=== PATIENT | female | born 1985 | race Caucasian/White ===

== ENCOUNTER → 2016-11-11 | Outpatient (REF) | payer OTHER ==
[~2016-11-11] MED LIST: *BLW9; ALBUTEROL INHALATION; CLARITIN10 PO; LEVOTH PO; LEVOXYL PO; LEVOXYL50 PO; NASONEX NASAL; ZITHROZPAK PO; ZYRTEC10 PO; ZYRTECD12 PO
[2016-11-11 19:35] LABS: CALCIUM OXALATE CRYSTALS LARGE
== END ==
LOC: M LAB REF 16:54
PROVIDERS: ATTEND Physician Assistant Medical
DX: N39.0 Urinary tract infection, site not specified (principal)

== ENCOUNTER 2017-01-02 20:57 | Emergency (ER) | payer OTHER ==
[~2017-01-02] VITALS: Ht 162.6 cm; Wt 85.3 kg
[2017-01-02] MEDS ORDERED: OMEP40CA2 PO (21:19)
[2017-01-02] MEDS ORDERED: DOXE75CA2 PO (21:19)
[2017-01-02] MEDS ORDERED: VENLAFAXINE PO (21:19)
[2017-01-02] MEDS ORDERED: ALPR1TAB3 PO (21:19)
[2017-01-02] MEDS ORDERED: [UNRECOGNIZED DRUG - REMARK] PO (21:19)
[2017-01-02] MEDS ORDERED: XANA2TAB2 PO (21:19)
[2017-01-02] MEDS ORDERED: MULT1TAB10 PO (21:19)
[2017-01-02] MEDS ORDERED: LEVO125T3 PO (21:19)
[2017-01-02] MEDS ORDERED: FLON27.5 (21:19)
[2017-01-02] MEDS ORDERED: XYZA5TAB2 PO (21:19)
[2017-01-02] MEDS ORDERED: REGL10TA6 PO (22:59)
[2017-01-02] MEDS ORDERED: BACT800T5 PO (22:59)
[2017-01-02] MEDS ORDERED: BACTRIM 160MG/800MG DS TAB PO ONE (23:00)
[2017-01-02] MEDS ORDERED: METOCLOPRAMIDE 10 MG TAB PO ONE (23:00)
[2017-01-02 23:13] VITALS: BP 124/75
== END 2017-01-02 23:14 | disposition home or self-care (01) ==
LOC: M ED 21:26
DX: L02.416 Cutaneous abscess of left lower limb (principal); R11.0 Nausea

== ENCOUNTER 2017-01-14 13:30 | Emergency (ER) | payer OTHER, SELFPAY ==
[~2017-01-14] VITALS: Ht 162.6 cm; Wt 81.6 kg
[~2017-01-14 13:30] MED LIST changes: +ALPR1TAB3 PO; +BACT800T5 PO; +DOXE75CA2 PO; +FLON27.5; +LEVO125T3 PO; +MULT1TAB10 PO; +OMEP40CA2 PO; +REGL10TA6 PO; +VENLAFAXINE PO; +XANA2TAB2 PO; +XYZA5TAB2 PO; +[UNRECOGNIZED DRUG - REMARK] PO
--- NOTE | 2017-01-14 15:12 | REP ---
LEFT FOREARM, TWO VIEWS: HISTORY: Injury. There is no acute fracture or dislocation. The joint spaces are normal in appearance. IMPRESSION: There is no acute fracture or dislocation. Signed by Alfonso Verduzco MD 01/14/2017 03:17 P
[2017-01-14 15:32] VITALS: BP 129/79
== END 2017-01-14 15:36 | disposition home or self-care (01) ==
LOC: M ED 15:04
DX: S50.12XA Contusion of left forearm, initial encounter (principal); X58.XXXA Exposure to other specified factors, initial encounter; Y92.513 Shop (commercial) as the place of occurrence of the external cause; Y93.89 Activity, other specified; Y99.9 Unspecified external cause status

== ENCOUNTER → 2017-03-28 | Outpatient (REF) | payer MEDICAID ==
[~2017-03-28] MED LIST changes: -LEVO125T3 PO; +LEVO125T4 PO
== END ==
LOC: M LAB REF 09:23
PROVIDERS: ATTEND Physician Assistant Medical
DX: N39.0 Urinary tract infection, site not specified (principal)

== ENCOUNTER 2017-07-27 22:22 | Emergency (ER) | payer OTHER ==
[~2017-07-27] VITALS: Ht 162.6 cm; Wt 81.8 kg
[2017-07-27] MEDS ORDERED: HYDROmorphone HCL 1 MG/ML SYRINGE (J1170) IV ONE (22:45)
[2017-07-27] MEDS ORDERED: PROPOFOL 200 MG/20 ML VIAL As Ordered ONE (23:28)
[2017-07-27] MEDS ORDERED: diphenhydrAMINE INJ 50MG/ML VIAL (J1200) As Ordered ONE (23:36)
[2017-07-27 23:58] LABS: BASO # 0.1 10^3/uL (0.0-0.2); BASO % 0.9 % (0.0-1.0); EOS # 0.9 10^3/uL (0.0-0.50); EOS % 8.9 % (0.0-3.0); IMMATURE GRANULOCYTE % 0.3 % (0-0); LYMPH # 4.1 10^3/uL (1.5-4.5); LYMPH % 40.7 % (24.0-44.0); MEAN CORPUSCULAR HGB CONC 33.1 g/dl (32.0-36.5); MEAN CORPUSCULAR VOLUME 87.6 fl (80.0-96.0); MONO # 0.6 10^3/uL (0.0-0.8); MONO % 5.5 % (0.0-5.0); NEUTROPHILS # 4.4 10^3/uL (1.8-7.7); NEUTROPHILS % 43.7 % (36.0-66.0); PLATELET COUNT, AUTOMATED 475 10^3/uL (150-450); RED CELL DISTRIBUTION WIDTH 13.2 % (11.5-14.5)
[2017-07-28 00:02] LABS: INR 0.88
[2017-07-28 00:07] LABS: ANION GAP 7 MEQ/L (8-16); BLOOD UREA NITROGEN 15 MG/DL (7-18); CALCIUM LEVEL 8.7 MG/DL (8.5-10.1); CARBON DIOXIDE LEVEL 31 MEQ/L (21-32); CHLORIDE LEVEL 100 MEQ/L (98-107); CREATININE FOR GFR 1.05 MG/DL (0.55-1.02); GLOMERULAR FILTRATION RATE > 60.0 (>60); GLUCOSE, FASTING 90 MG/DL (70-105); SODIUM LEVEL 138 MEQ/L (136-145)
[2017-07-28] MEDS ORDERED: NORCO 5/325MG TABLET (BULK FOR ED) PO ONE (00:30)
[2017-07-28] MEDS ORDERED: VENL75CA47 PO (00:40)
[2017-07-28] MEDS ORDERED: CRAN400T3 PO (00:40)
[2017-07-28] MEDS ORDERED: MORPHINE 4 MG/ML 1ML SYRINGE IV ONE (01:00)
[2017-07-28 01:30] VITALS: BP 138/77
[2017-07-28] MEDS ORDERED: PROPOFOL 200 MG/20 ML VIAL IV ONE (01:45)
[2017-07-28] MEDS ORDERED: NS 1,000 ML IV ONE (02:30)
--- NOTE | 2017-07-28 07:42 | REP ---
Left tibia-fibula AP and oblique views, four projections: There is anterior dislocation of the distal tibia. There are fractures of the medial and lateral malleoli. I cannot determine with certainty. There is a posterior malleolar fracture on the views presented. No the tibial or fibular fractures are identified. Signed by Aaron Bergeron MD 07/28/2017 07:34 A
--- NOTE | 2017-07-28 07:43 | REP ---
Left ankle four views: There is anterior and medial dislocation of the distal tibia. There are fractures of the distal fibula and of the medial malleolus. I cannot determine with certainty if there is a posterior malleolar fracture. The talar dome is unremarkable. Impression: Bimalleolar fracture with anterior and medial dislocation of the distal tibia Signed by Aaron Bergeron MD 07/28/2017 07:35 A
--- NOTE | 2017-07-28 07:47 | REP ---
Left ankle two views: There is a fiberglass splint laterally. The tibial dislocation has been satisfactorily reduced. There are fractures of the medial lateral malleoli and have been reduced. The medial portion of the mortise is slightly widened. On the lateral view there is question of a posterior malleolar fracture. The posterior malleolus is obscured by superimposition. At the level of the Signed by Aaron Bergeron MD 07/28/2017 07:38 A
--- NOTE | 2017-07-28 07:48 | REP ---
Chest, single AP view: There are no comparisons. The lung billingsley are clear. Cardiac size is normal. The ferdinand, mediastinum, and bony thorax are unremarkable. Impression: Negative chest. Signed by Aaron Bergeron MD 07/28/2017 07:39 A
== END 2017-07-28 02:25 | disposition home or self-care (01) ==
LOC: M ED 22:22 → EDBD 22:22 → M ED 07-28 02:25
DX: S82.852A Displaced trimalleolar fracture of left lower leg, initial encounter for closed fracture (principal); W00.0XXA Fall on same level due to ice and snow, initial encounter; Y92.410 Unspecified street and highway as the place of occurrence of the external cause; Y93.01 Activity, walking, marching and hiking; Y99.9 Unspecified external cause status
CPT/HCPCS: 27810; 36415; 71010; 73590; 73600; 73610; 80048; 85025; 85610; 85730; 96374; 96375; 99152; 99153; 99285; J1170

== ENCOUNTER 2017-08-08 06:14 | Day surgery (SDC) | payer OTHER ==
[~2017-08-08] VITALS: Ht 162.6 cm; Wt 83.6 kg
[~2017-08-08 06:14] MED LIST changes: +CRAN400T3 PO; +HYDR-3713 PO; +VENL75CA47 PO
[2017-08-08] MEDS ORDERED: LIDOCAINE 1% MDV 20ML VIAL ONE (06:15)
[2017-08-08] MEDS ORDERED: ROPIvacaine 0.5% 30 ML INJECTION (J2795 PER 1MG) ONE (06:15)
[2017-08-08] MEDS ORDERED: LR 1,000 ML IV SCH ×3 (06:15→13:15)
[2017-08-08] MEDS ORDERED: dexameTHASONE 10 MG/1 ML VIAL PRES.FREE (J1100) ONE (06:15)
[2017-08-08] MEDS ORDERED: VANCOMYCIN HCL 1,000 MG, VIAL MATE ADAPTER 1 EACH in D5W 250 ML IV ONE (06:30)
[2017-08-08] MEDS ORDERED: CLINDAMYCIN INJ 900MG/6ML VIAL As Ordered ONE (07:13)
[2017-08-08] MEDS ORDERED: MIDAZOLAM INJ 2 MG/2 ML VIAL (J2250) As Ordered ONE (08:05)
[2017-08-08] MEDS ORDERED: fentaNYL 100 MCG/2 ML INJECTION (J3010) As Ordered ONE ×4 (08:05→12:43)
[2017-08-08] MEDS ORDERED: ROCURONIUM BROMIDE 50 MG/5 ML VIAL As Ordered ONE (08:05)
[2017-08-08] MEDS ORDERED: LIDOCAINE 2% INJ 100 MG/5 ML SDV (FOR ANES.) As Ordered ONE (08:06)
[2017-08-08] MEDS ORDERED: METOCLOPRAMIDE INJ 10MG/2ML VIAL (J2765) As Ordered ONE (08:06)
[2017-08-08] MEDS ORDERED: PROPOFOL 200 MG/20 ML VIAL As Ordered ONE ×3 (08:06→12:09)
[2017-08-08] MEDS ORDERED: ONDANSETRON 4MG/2ML VIAL (J2405) As Ordered ONE ×2 (08:06→14:35)
[2017-08-08] MEDS ORDERED: HYDROmorphone HCL 2 MG/ML 1ML VIAL (J1170) As Ordered ONE (08:12)
[2017-08-08] MEDS ORDERED: GLYCOPYRROLATE INJ 0.2 MG/ML 2 ML VIAL As Ordered ONE ×2 (08:15→11:23)
[2017-08-08] MEDS ORDERED: NEOSTIGMINE 10 MG/10 ML VIAL (J2710) As Ordered ONE ×2 (08:15→11:23)
[2017-08-08] MEDS ORDERED: VITAMIN D 1,000 INTERNATIONAL UNITS TABLET PO SCH (09:00)
[2017-08-08] MEDS ORDERED: REMIFENTANIL 1MG 3ML VIAL As Ordered ONE (10:50)
[2017-08-08] MEDS ORDERED: BUPIVACAINE HCL 0.5% 30 ML VIAL As Ordered ONE (11:13)
[2017-08-08] MEDS: fentaNYL 100 MCG/2 ML INJECTION (J3010) IV PRN ×4 (12:45→13:15)
[2017-08-08] MEDS ORDERED: ROXI1TAB2 PO (12:47)
[2017-08-08] MEDS ORDERED: BACT800T5 PO (12:52)
[2017-08-08] MEDS ORDERED: MORPHINE 10 MG/ML 1ML VIAL IV PRN (13:15)
[2017-08-08] MEDS ORDERED: oxyCODONE 5MG TAB PO PRN ×3 (13:15)
[2017-08-08] MEDS ORDERED: ONDANSETRON 4MG/2ML VIAL (J2405) IV PRN (13:15)
[2017-08-08] MEDS ORDERED: HYDROmorphone HCL 2 MG/ML 1ML VIAL (J1170) IV PRN (13:15)
--- NOTE | 2017-08-08 13:43 | REP ---
LEFT ANKLE SERIES: 11 views. HISTORY: Open reduction internal fixation ankle fracture. 1 minute 36 seconds fluoroscopy time is reported. FINDINGS: A sequence of 11 last image hold fluoroscopic spot radiographs of the left ankle document operative fixation of trimalleolar fracture dislocation. Signed by Chris Cronin MD 08/08/2017 03:57 P
[2017-08-08] MEDS ORDERED: ACETAMINOPHEN 500 MG TAB PO SCH (14:00)
[2017-08-08 16:30] VITALS: BP 142/92
[2017-08-09] MEDS ORDERED: ASPIRIN 81 MG CHEW TABLET PO SCH (09:00)
--- NOTE | 2017-08-12 17:09 | RO ---
DATE OF PROCEDURE: 08/08/2017 PREOPERATIVE DIAGNOSIS: Left trimalleolar ankle fracture dislocation. POSTOPERATIVE DIAGNOSIS: Left trimalleolar ankle fracture dislocation. PROCEDURE: Left open reduction internal fixation of distal fibula and medial malleolus. SURGEON: Nancy Urban MD BENZENE WORKER: Maximilian Berry MD ANESTHESIA: General endotracheal. ESTIMATED BLOOD LOSS: 100 mL. COMPLICATIONS: None. IMPLANTS: Synthes one-third tubular plate 7 hole, 0.62 K-wires times two, 3.5 cortical screws times five, two 4.0 mm cancellus screws, and 18-gauge wire. INDICATIONS: Jeanna Dunham is a 32-year-old female who was stepping out of her truck when she sustained an ankle fracture dislocation approximately 2 weeks ago. The patient was seen in the emergency room where a closed reduction was performed. She was then seen in the office where a skin check was done a few days ago. At this point the patient had a fracture blister medially and her skin was still quite swollen. Patient was put in to another cast with plans to keep her leg elevated for a few more days with a skin check and possible operation today. Risks and benefits of surgery were discussed with the patient in detail and include but are nor limited to infection, blood clot, malunion or nonunion, continued pain and stiffness, damage to nerves and blood vessels and need for additional procedures. Patient understands these risks and wishes to proceed with surgery. Informed consent was obtained prior to the procedure. PROCEDURE: The patient was met in the preoperative holding area where her cast was taken down off the left lower extremity. Her swelling had improved significantly and the fracture blister medially had begun to heal. It was also out of the region of the necessary incision for the medial malleolar fragment. Decision was made to proceed with operation and informed consent was obtained. The patients left lower extremity was marked and then she was taken to the operating room. The patient was placed in the supine position in the operating room table with her bony prominences well padded. A well padded tourniquet was placed in the upper thigh. She underwent general anesthesia without any difficulty. Vancomycin was given prior to incision. At this point an incision was marked out over the posterior lateral aspect of the fibula. The tourniquet was inflated to 250 mm of mercury after exsanguinating the leg. The skin was incised with a 15-blade and careful dissection to avoid the superficial peroneal nerve was performed to the level of the distal fibula. The fibula was exposed and the fracture was cleaned of any hematoma and debris. The fracture was then reduced using a reduction clamp. A 3.5 mm lag screw was placed across the fracture site. Radiographs were performed and reduction was found to be satisfactory in AP, lateral, and mortise views. At this point a 7 hole one-third tubular plate was selected. This was placed in the posterior lateral aspect of the fibula. The first screw was placed in the fracture. Following this, the more proximal screws were also placed to further secure the plate. There are four screws proximal to the fracture. Two screws were placed distal to the fracture. After the plate was placed x-rays are again performed in AP, lateral, and mortise views and found to be satisfactory. At this point our attention was turned to the medial malleolar fragment. An incision was made directly over the medial malleolus which was plenty far away from the prior fracture blister. Careful dissection to the level of the fracture was performed. The fracture was cleaned of any hematoma and debris using curettes and rongeurs. It was irrigated with copious normal saline. The fracture was reduced with a dental pick and held in place with two 0.62 wires. It was decided that the fracture fragment was too small for 4.0 mm screw and so I made tension band construct using a 3.5 mm screw and 18-gauge wire. This was secured and the fracture had reduced nicely. Final x-rays were performed in AP, lateral, and mortise views and found to be satisfactory. All wounds were copiously irrigated with normal saline. The soft tissues were closed using a combination of 2-0 and 3-0 Vicryl. The skin was closed using 3-0 Nylon in a vertical mattress fashion. A well padded splint was placed. The patient did undergo a straight cath at the end of the case as she had not been able to avoid before the case. She was extubated without difficulty and transferred to postanesthesia care unit in stable condition. PLAN: Patient will be nonweightbearing in her left lower extremity in her splints. Postoperatively, the patient was examined and found to have a positive EHL and FHL. She had normal sensation to light touch in the superficial peroneal, deep peroneal, tibial distribution. The foot was warm and well perfused. There is no pain with passive stretch of the toes and her calf compartments were all soft and compressible. The patient did decide to undergo a nerve block to help with pain control. She knows that she must keep her leg elevated for 90% of the day for next 3-4 days while her swelling continues to improve. I will see her back in the office next week so we can switch out the splint for a cast. She will receive aspirin for DVT prophylaxis. All of her questions were answered and she was in agreement with this plan.
== END 2017-08-08 17:40 | disposition home or self-care (01) ==
LOC: M SDC 06:14
PROVIDERS: ATTEND Orthopaedic Surgery
DX: S82.852A Displaced trimalleolar fracture of left lower leg, initial encounter for closed fracture (principal); X58.XXXA Exposure to other specified factors, initial encounter; Y92.89 Other specified places as the place of occurrence of the external cause; Y93.89 Activity, other specified; Y99.8 Other external cause status; E03.9 Hypothyroidism, unspecified; F41.9 Anxiety disorder, unspecified; F42.9 Obsessive-compulsive disorder, unspecified; K21.9 Gastro-esophageal reflux disease without esophagitis; G43.909 Migraine, unspecified, not intractable, without status migrainosus; J45.909 Unspecified asthma, uncomplicated; Z88.0 Allergy status to penicillin; Z88.6 Allergy status to analgesic agent; Z91.09 Other allergy status, other than to drugs and biological substances; Z91.040 Latex allergy status; Z79.899 Other long term (current) drug therapy; Z92.3 Personal history of irradiation
CPT/HCPCS: 27822; 73610; 96365; 96366; 96375; C1713; J1100; J1170; J2250; J2405; J2710; J2765; J2795; J3010; J3370

== ENCOUNTER 2017-09-25 15:31 | Day surgery (SDC) | payer OTHER ==
[2017-09-25 16:01] LABS: CONTROL LINE UCG INT CTR LINE PRESENT; URINE PREG TEST NEGATIVE (NEGATIVE)
[2017-09-25] MEDS: LR 1,000 ML IV (16:15)
[2017-09-25] MEDS ORDERED: LIDOCAINE 2% INJ 100 MG/5 ML SDV (FOR ANES.) As Ordered (17:27)
[2017-09-25] MEDS ORDERED: dexameTHASONE 4 MG/ML 1ML VIAL (J1100) As Ordered (17:28)
[2017-09-25] MEDS ORDERED: PROPOFOL 200 MG/20 ML VIAL As Ordered (17:28)
[2017-09-25] MEDS ORDERED: KETOROLAC 60 MG/2 ML VIAL (J1885) As Ordered (17:28)
[2017-09-25] MEDS ORDERED: ONDANSETRON 4MG/2ML VIAL (J2405) As Ordered (17:28)
[2017-09-25] MEDS ORDERED: fentaNYL 100 MCG/2 ML INJECTION (J3010) As Ordered (17:28)
[2017-09-25] MEDS ORDERED: MIDAZOLAM INJ 2 MG/2 ML VIAL (J2250) As Ordered (17:28)
[2017-09-25] MEDS: ceFAZolin 1GM INJ (J0690 PER 500MG) As Ordered (19:32)
[2017-09-25] MEDS: VANCOMYCIN 1000 MG/20 ML VIAL (J3370) As Ordered (19:45)
[2017-09-25] MEDS: BUPIVACAINE HCL 0.5% 10 ML VIAL As Ordered (20:35)
[2017-09-25] MEDS ORDERED: PERCOCET 5MG/325MG TAB As Ordered (20:52)
[2017-09-25] MEDS: PERCOCET 5MG/325MG TAB PO ×2 (20:58→22:00)
[2017-09-25] MEDS ORDERED: LR 1,000 ML IV ×2 (21:00→21:15)
[2017-09-25] MEDS ORDERED: ONDANSETRON 4MG/2ML VIAL (J2405) IV (21:00)
[2017-09-25] MEDS ORDERED: fentaNYL 100 MCG/2 ML INJECTION (J3010) IV (21:00)
[2017-09-25] MEDS ORDERED: oxyCODONE 5MG TAB PO ×2 (21:15)
[2017-09-25] MEDS ORDERED: ACETAMINOPHEN 500 MG TAB PO (22:00)
[2017-09-26] MEDS ORDERED: ASPIRIN 81 MG CHEW TABLET PO (09:00)
== END 2017-09-25 22:35 | disposition home or self-care (01) ==
LOC: M SDC 22:35
DX: R22.42 Localized swelling, mass and lump, left lower limb (principal); E03.9 Hypothyroidism, unspecified; K21.9 Gastro-esophageal reflux disease without esophagitis; Z87.81 Personal history of (healed) traumatic fracture; F41.9 Anxiety disorder, unspecified; F32.9 Major depressive disorder, single episode, unspecified; J45.909 Unspecified asthma, uncomplicated; G43.909 Migraine, unspecified, not intractable, without status migrainosus; Z92.3 Personal history of irradiation; Z91.048 Other nonmedicinal substance allergy status; Z88.0 Allergy status to penicillin; Z79.899 Other long term (current) drug therapy
CPT/HCPCS: 11042

== ENCOUNTER 2018-02-26 13:28 | Emergency (ER) | payer OTHER | END 2018-02-26 17:10 | disposition home or self-care (01) | LOC: M ED 13:28 | DX: J30.9 Allergic rhinitis, unspecified (principal); R05 Cough; K21.9 Gastro-esophageal reflux disease without esophagitis; R51 Headache; Z88.0 Allergy status to penicillin; Z88.6 Allergy status to analgesic agent; Z79.899 Other long term (current) drug therapy | CPT/HCPCS: 99283 ==

== ENCOUNTER → 2018-05-21 | Outpatient (REF) | payer OTHER ==
[2018-05-21 19:04] LABS: APPEARANCE, URINE CLEAR (CLEAR); BACTERIA, URINE AUTO 1+ (NEGATIVE); BILIRUBIN, URINE AUTO NEGATIVE (NEGATIVE); BLOOD, URINE BLOOD 1+ (NEGATIVE); COLOR, URINE STRAW (YELLOW); GLUCOSE, URINE (UA) AUTO NEGATIVE (NEGATIVE); KETONE, URINE AUTO NEGATIVE (NEGATIVE); LEUKOCYTE ESTERASE, URINE AUTO NEGATIVE (NEGATIVE); MUCUS, URINE SMALL (NEGATIVE); NITRITE, URINE AUTO NEGATIVE (NEGATIVE); PROTEIN, URINE AUTO NEGATIVE (NEGATIVE); RBC, URINE AUTO 1 /HPF (0-3); SPECIFIC GRAVITY URINE AUTO 1.006 (1.002-1.035); SQUAMOUS EPITHELIAL CELL UR AU 0 /HPF (0-6); UROBILINOGEN, URINE AUTO 0.2 mg/dL (0.0-2.0); WBC, URINE AUTO 1 /HPF (0-3)
== END ==
LOC: M LAB REF 17:57
DX: N39.0 Urinary tract infection, site not specified (principal)

== ENCOUNTER → 2018-05-29 | Outpatient (CLI) | payer OTHER | LOC: M RAD 16:33 | DX: Z34.80 Encounter for supervision of other normal pregnancy, unspecified trimester (principal); Z3A.18 18 weeks gestation of pregnancy | CPT/HCPCS: 76811 ==

== ENCOUNTER → 2018-06-01 | Outpatient (REF) | payer OTHER ==
[2018-06-01 14:55] LABS: APPEARANCE, URINE CLEAR (CLEAR); BACTERIA, URINE AUTO NEGATIVE (NEGATIVE); BILIRUBIN, URINE AUTO NEGATIVE (NEGATIVE); BLOOD, URINE BLOOD NEGATIVE (NEGATIVE); COLOR, URINE STRAW (YELLOW); GLUCOSE, URINE (UA) AUTO NEGATIVE (NEGATIVE); KETONE, URINE AUTO NEGATIVE (NEGATIVE); LEUKOCYTE ESTERASE, URINE AUTO NEGATIVE (NEGATIVE); NITRITE, URINE AUTO NEGATIVE (NEGATIVE); PROTEIN, URINE AUTO NEGATIVE (NEGATIVE); RBC, URINE AUTO 0 /HPF (0-3); SPECIFIC GRAVITY URINE AUTO 1.002 (1.002-1.035); SQUAMOUS EPITHELIAL CELL UR AU 0 /HPF (0-6); UROBILINOGEN, URINE AUTO 0.2 mg/dL (0.0-2.0); WBC, URINE AUTO 1 /HPF (0-3)
== END ==
LOC: M LAB REF 14:46
DX: N39.0 Urinary tract infection, site not specified (principal)

== ENCOUNTER 2018-06-05 23:07 | Outpatient (CLI) | payer OTHER | END 2018-06-05 23:53 | disposition home or self-care (01) | LOC: M LDO 23:07 | DX: O26.852 Spotting complicating pregnancy, second trimester (principal); Z3A.20 20 weeks gestation of pregnancy ==

== ENCOUNTER → 2018-06-26 | Outpatient (CLI) | payer OTHER | LOC: M RAD 16:22 | DX: Z34.82 Encounter for supervision of other normal pregnancy, second trimester (principal); Z36.89 Encounter for other specified antenatal screening; Z3A.22 22 weeks gestation of pregnancy | CPT/HCPCS: 76816 ==

== ENCOUNTER → 2018-08-06 | Outpatient (CLI) | payer OTHER ==
[~2018-08-06] MED LIST changes: +DOXE100CA PO; +MUCI600T37 PO; +PRENTAB9 PO; +ROXI1TAB2 PO; +SUDA30TA8 PO; +ZYRTTAB8 PO
--- NOTE | 2018-08-07 03:05 | REP ---
Clinical: Anatomical evaluation. Comparison: 06/26/2018 . Findings: Examination demonstrates a single live intrauterine in cephalic presentation. motion is identified by technologist. Placenta is noted anterior fundal and grade grade 1 without evidence for placenta previa or abruption. Amniotic fluid volume is normal. Cervix measures 3.9 cm in length and appears closed. Nuchal cord noted. Gestational age by LMP 27 weeks 6 days with NIGHAT 10/30/2018 . Gestational age by current measurements 28 weeks 1 day with NIGHAT 10/28/2018 . FHR equals 149 beats per minute. Estimated weight 1199 grams ( 51st percentile). Amniotic fluid index: 19.9 cm. Anatomical assessment demonstrates normal structures including cranium, choroid plexus, cavum, cerebellum/posterior fossa, facial features, lungs, four-chamber heart/ventricular outflow tracts, diaphragm, stomach, cord insertion/three-vessel cord, kidneys/bladder, spine, and extremities. Impression: 1. In conjunction with prior examination anatomical assessment is complete and normal. 2. Nuchal cord noted. Electronically Signed by Pablo Gonzalez MD 08/07/2018 02:57 A
== END ==
LOC: M RAD 12:27
PROVIDERS: ATTEND Advanced Practice Midwife
DX: Z34.82 Encounter for supervision of other normal pregnancy, second trimester (principal); O09.512 Supervision of elderly primigravida, second trimester; Z3A.28 28 weeks gestation of pregnancy

== ENCOUNTER → 2018-09-02 | Outpatient (REF) | payer OTHER ==
[2018-09-02 14:22] LABS: INFLUENZA A AMPLIFICATION NEGATIVE (NEGATIVE); INFLUENZA B AMPLIFICATION NEGATIVE (NEGATIVE)
== END ==
LOC: M LAB REF 13:21
PROVIDERS: ATTEND Advanced Practice Midwife
DX: O09.523 Supervision of elderly multigravida, third trimester (principal); J00 Acute nasopharyngitis [common cold]

== ENCOUNTER → 2018-09-09 | Outpatient (REF) | payer OTHER | LOC: M LAB REF 17:13 | PROVIDERS: ATTEND Advanced Practice Midwife | DX: O09.523 Supervision of elderly multigravida, third trimester (principal) ==

== ENCOUNTER → 2018-09-23 | Outpatient (REF) | payer OTHER ==
[~2018-09-23] MED LIST changes: +ACET500T15 PO; +EFFE150C2 PO
== END ==
LOC: M LAB REF 17:03
PROVIDERS: ATTEND Advanced Practice Midwife
DX: O09.523 Supervision of elderly multigravida, third trimester (principal)

== ENCOUNTER 2018-09-26 21:09 | Outpatient (CLI) | payer OTHER ==
[~2018-09-26] VITALS: Ht 162.6 cm; Wt 90.5 kg
[~2018-09-26 21:09] MED LIST changes: -ACET500T15 PO; -EFFE150C2 PO
[2018-09-26 21:19] VITALS: BP 127/83
[2018-09-26] MEDS ORDERED: EFFE150C2 PO (21:25)
[2018-09-26] MEDS ORDERED: ACET500T15 PO (21:25)
[2018-09-26 22:44] VITALS: BP 119/77
== END 2018-09-26 22:47 | disposition home or self-care (01) ==
LOC: M LDO 21:09
PROVIDERS: ATTEND Obstetrics & Gynecology
DX: O47.03 False labor before 37 completed weeks of gestation, third trimester (principal); Z3A.36 36 weeks gestation of pregnancy

== ENCOUNTER 2018-10-10 09:57 | Inpatient (IN) | payer OTHER ==
[2018-10-10] VITALS (18 sets, daily range): BP systolic 123–162; BP diastolic 62–94
[~2018-10-10] VITALS: Ht 162.6 cm; Wt 92.8 kg
[~2018-10-10 09:57] MED LIST changes: +ACET500T15 PO; +EFFE150C2 PO
[2018-10-10] MEDS ORDERED: VANCOMYCIN HCL 750 MG, VIAL MATE ADAPTER 1 EACH in D5W 250 ML IV SCH (10:15)
[2018-10-10] MEDS ORDERED: miSOPROStol 50 MCG 1/2 TAB (S0191) SL SCH (11:00)
[2018-10-10] MEDS ORDERED: LEVO150T7 PO (11:35)
[2018-10-10] MEDS: LR 1,000 ML IV SCH ×2 (12:01→17:01)
[2018-10-10 12:33] LABS: HEMATOCRIT 28.6 % (36.0-47.0); MEAN CORPUSCULAR HEMOGLOBIN 30.7 pg (27.0-33.0); MEAN CORPUSCULAR VOLUME 87.7 fl (80.0-96.0); PLATELET COUNT, AUTOMATED 275 10^3/uL (150-450); RED BLOOD COUNT 3.26 10^6/uL (4.00-5.40); WHITE BLOOD COUNT 10.4 10^3/uL (4.0-10.0)
[2018-10-10 12:47] LABS: AMPHETAMINES URINE REFLEX NEGATIVE (NEGATIVE); BENZODIAZEPINES URINE REFLEX NEGATIVE (NEGATIVE); CANNABINOIDS URINE REFLEX NEGATIVE (NEGATIVE); COCAINE METABOLITE URINE REFLE NEGATIVE (NEGATIVE); METHADONE URINE REFLEX NEGATIVE (NEGATIVE); OPIATES URINE REFLEX NEGATIVE (NEGATIVE); PHENCYCLIDINE URINE REFLEX NEGATIVE (NEGATIVE)
[2018-10-10 12:59] LABS: BARBITURATES URINE REFLEX PENDING CONFIRMATION (NEGATIVE)
[2018-10-10] MEDS ORDERED: ceFAZolin SOD 1 GM in D5W MINI-BAG PLUS 50 ML IV SCH ×2 (16:00→20:00)
[2018-10-10] MEDS ORDERED: OXYTOCIN DRIP 30 UNITS in APPROPRIATE DILUENT 1 EA IV SCH (16:45)
[2018-10-10] MEDS ORDERED: RHOGAM 300 MCG (1500 IU) INJ (J2790) IM SCH (21:45)
[2018-10-10] MEDS ORDERED: MEASLES,MUMPS,RUBELLA VACCINE INJ (MMR-II) (90707) SC SCH (21:45)
[2018-10-10] MEDS ORDERED: METHYLERGONOVINE MALEATE 0.2 MG TAB PO PRN (21:45)
[2018-10-10] MEDS ORDERED: ONDANSETRON 4MG/2ML VIAL (J2405) IV PRN (21:45)
[2018-10-10] MEDS ORDERED: DIBUCAINE 1% OINTMENT 30GM TOP PRN (21:45)
[2018-10-10] MEDS ORDERED: LIDOCAINE 1% MDV 20ML VIAL INFIL ONE (21:45)
[2018-10-10] MEDS ORDERED: OXYTOCIN DRIP 30 UNITS in APPROPRIATE DILUENT 1 EA IV ONE (21:45)
[2018-10-10] MEDS ORDERED: DOCUSATE SODIUM 100 MG CAP PO PRN (21:45)
[2018-10-10] MEDS ORDERED: ACETAMINOPHEN 500 MG TAB PO PRN (21:45)
[2018-10-10] MEDS: IBUPROFEN 800 MG TAB PO PRN (22:07)
[2018-10-11 00:20] VITALS: BP 131/84
[2018-10-11 06:03] VITALS: BP 131/76
[2018-10-11] MEDS: IBUPROFEN 800 MG TAB PO PRN ×2 (06:07→20:22)
[2018-10-11] MEDS: PRENATAL VITAMINS CHEWABLE TABLET PO SCH (08:07)
[2018-10-11] MEDS: VENLAFAXINE **XR** 75MG CAPSULE PO SCH (09:18)
[2018-10-11] MEDS: LEVOTHYROXINE 150MCG TABLET (0.15MG) PO SCH (09:18)
--- NOTE | 2018-10-11 10:30 | HPE ---
DATE OF ADMISSION: 10/10/2018 HISTORY: 33-year-old G4, P3 female, 38-1/7 weeks gestation by LMP consistent with 17 week ultrasound, estimated date of delivery (EDC) 11/02/2018 presents for labor induction. Indication for delivery less than 39 weeks is gestational hypertension. The patient has contractions or vaginal bleeding. COURSE: She received care at 14 weeks gestation 04/28/2018. Her blood pressure is 112/72, weight 206. course was unremarkable until 10/06/2018 when she had a blood pressure of 140/92 in the office. She also had an 8 pound weight gain from the prior week. OBSTETRICAL HISTORY: 1. 2004. 40 week vaginal delivery, 7 pound 6 ounce female. 2. 2006. 40 week vaginal delivery, 7 pound 8 ounce female. 3. 2009. 37 week vaginal delivery, 8 pound 2 ounce male. MEDICAL HISTORY: Hypothyroidism. SURGICAL HISTORY: Ankle surgery. Appendectomy. Tonsillectomy. ALLERGIES: PENICILLIN. SOCIAL HISTORY: Patient denies cigarettes, alcohol or current drug use. She has a history of past drug use. She has a history of being incarcerated in the past for driving under the influence of drugs. FAMILY HISTORY: Noncontributory. PHYSICAL EXAMINATION: Blood pressure 138/86, pulse 84. In no apparent distress. Head and neck: Normal. Lungs: Clear. Heart: Regular rate and rhythm. Abdomen: Nontender, gravid. heart tones Category 1. Contractions irregular. Sterile vaginal exam: 3 cm, 80%, -2, posterior, soft vertex. Extremities: Nontender. LABS: Blood type A positive. Rubella immune. GBS positive on 09/23/2018. ASSESSMENT: 33-year-old G4, P3 female at 38-1/7 weeks gestation with gestational hypertension presents for induction. PLAN: The patient is admitted on 10/10/2018. Risks of induction were discussed. Patient was treated with antibiotics for GBS prophylaxis.
--- NOTE | 2018-10-11 10:31 | DN ---
DATE OF DELIVERY: 10/10/2018 PREDELIVERY DIAGNOSIS: 38-1/7 weeks gestation, gestational hypertension. POSTDELIVERY DIAGNOSIS: Delivered. PROCEDURE: Spontaneous vaginal delivery. LIP READING TEACHER: Alfonso Sheets MD ANESTHESIA: None. ESTIMATED BLOOD LOSS: 300 mL. FINDINGS: 6 pound 9 ounce (2984 gram) male infant, score 6 and 6. DELIVERY SUMMARY: After a short second stage consisting of two pushes, the patient had spontaneously delivered a 6 pound 9 ounce male , score 6 and 6, with no delivery of anesthesia. There was no nuchal cord. The shoulders delivered with ease. The was handed to the mother. The cord was doubly clamped and cut. The placenta delivered spontaneously, appeared to be intact. The patient received intravenous (IV) pitocin immediately after delivery of the placenta. A small second-degree perineal laceration was repaired under local anesthesia with #2-0 chromic in the usual fashion. Sponge and needle counts were correct.
[2018-10-11 18:06] VITALS: BP 126/83
[2018-10-12 06:00] VITALS: BP 134/70
[2018-10-12] MEDS: LEVOTHYROXINE 150MCG TABLET (0.15MG) PO SCH (06:41)
[2018-10-12] MEDS: PRENATAL VITAMINS CHEWABLE TABLET PO SCH (08:04)
[2018-10-12] MEDS: VENLAFAXINE **XR** 75MG CAPSULE PO SCH (08:04)
[2018-10-12] MEDS ORDERED: IBUP-1114 PO (09:29)
== END 2018-10-12 11:55 | disposition home or self-care (01) | DRG 560 ==
LOC: M LDI 09:57 → M OBS 22:50
PROVIDERS: ADMIT Specialist; ATTEND Specialist
PROC: 10E0XZZ Delivery of Products of Conception, External Approach (ICD-10-PCS; principal; 2018-10-10)
PROC: 0KQM0ZZ Repair Perineum Muscle, Open Approach (ICD-10-PCS; 2018-10-10)
PROC: 3E0P7GC Introduction of Other Therapeutic Substance into Female Reproductive, Via Natural or Artificial Opening (ICD-10-PCS; 2018-10-10)
DX: O13.4 Gestational [pregnancy-induced] hypertension without significant proteinuria, complicating childbirth (principal); E03.9 Hypothyroidism, unspecified; Z3A.38 38 weeks gestation of pregnancy; O99.820 Streptococcus B carrier state complicating pregnancy; O99.284 Endocrine, nutritional and metabolic diseases complicating childbirth; O70.1 Second degree perineal laceration during delivery; Z37.0 Single live birth

== ENCOUNTER → 2018-11-04 | Outpatient (REF) | payer OTHER ==
[~2018-11-04] MED LIST changes: +IBUP-1114 PO; +LEVO150T7 PO
[2018-11-04 18:43] LABS: APPEARANCE, URINE CLEAR (CLEAR); BACTERIA, URINE AUTO NEGATIVE (NEGATIVE); BILIRUBIN, URINE AUTO NEGATIVE (NEGATIVE); BLOOD, URINE BLOOD 3+ (NEGATIVE); COLOR, URINE YELLOW (YELLOW); GLUCOSE, URINE (UA) AUTO NEGATIVE (NEGATIVE); KETONE, URINE AUTO NEGATIVE (NEGATIVE); LEUKOCYTE ESTERASE, URINE AUTO 1+ (NEGATIVE); MUCUS, URINE SMALL (NEGATIVE); NITRITE, URINE AUTO NEGATIVE (NEGATIVE); PROTEIN, URINE AUTO NEGATIVE (NEGATIVE); RBC, URINE AUTO 96 /HPF (0-3); SPECIFIC GRAVITY URINE AUTO 1.021 (1.002-1.035); SQUAMOUS EPITHELIAL CELL UR AU 1 /HPF (0-6); UROBILINOGEN, URINE AUTO 0.2 mg/dL (0.0-2.0); WBC, URINE AUTO 6 /HPF (0-3)
== END ==
LOC: M LAB REF 17:35
PROVIDERS: ATTEND Physician Assistant
DX: N39.0 Urinary tract infection, site not specified (principal)

== ENCOUNTER → 2018-11-27 | Outpatient (REF) | payer OTHER ==
[2018-11-27 13:33] LABS: APPEARANCE, URINE CLEAR (CLEAR); BACTERIA, URINE AUTO 1+ (NEGATIVE); BILIRUBIN, URINE AUTO NEGATIVE (NEGATIVE); BLOOD, URINE BLOOD NEGATIVE (NEGATIVE); COLOR, URINE STRAW (YELLOW); GLUCOSE, URINE (UA) AUTO NEGATIVE (NEGATIVE); KETONE, URINE AUTO NEGATIVE (NEGATIVE); LEUKOCYTE ESTERASE, URINE AUTO 2+ (NEGATIVE); NITRITE, URINE AUTO NEGATIVE (NEGATIVE); PROTEIN, URINE AUTO NEGATIVE (NEGATIVE); RBC, URINE AUTO 3 /HPF (0-3); SPECIFIC GRAVITY URINE AUTO 1.002 (1.002-1.035); SQUAMOUS EPITHELIAL CELL UR AU 1 /HPF (0-6); UROBILINOGEN, URINE AUTO 0.2 mg/dL (0.0-2.0); WBC, URINE AUTO 2 /HPF (0-3)
== END ==
LOC: M LAB REF 12:44
PROVIDERS: ATTEND Physician Assistant
DX: N39.0 Urinary tract infection, site not specified (principal)

== ENCOUNTER → 2019-10-01 | Outpatient (REF) | payer OTHER, MEDICAID ==
[~2019-10-01] MED LIST changes: -OMEP40CA2 PO; +OMEP40CA97 PO
[2019-10-01 18:07] LABS: BASO # 0.1 10^3/uL (0.0-0.2); BASO % 0.8 % (0.0-1.0); EOS # 0.4 10^3/uL (0.0-0.5); HEMATOCRIT 46.2 % (36.0-47.0); HEMOGLOBIN 14.8 g/dl (12.0-15.5); LYMPH # 3.4 10^3/uL (1.5-5.0); LYMPH % 44.4 % (24.0-44.0); MEAN CORPUSCULAR VOLUME 87.5 fl (80.0-96.0); MONO # 0.5 10^3/uL (0.0-0.8); MONO % 6.3 % (0.0-5.0); NEUTROPHILS # 3.3 10^3/uL (1.5-8.5); NEUTROPHILS % 43.2 % (36.0-66.0); PLATELET COUNT, AUTOMATED 322 10^3/uL (150-450); RED BLOOD COUNT 5.28 10^6/uL (4.00-5.40); WHITE BLOOD COUNT 7.6 10^3/uL (4.0-10.0)
[2019-10-01 18:11] LABS: ALBUMIN 4.3 GM/DL (3.2-5.2); ALT/SGPT 25 U/L (12-78); BILIRUBIN,TOTAL 0.3 MG/DL (0.2-1.0); BLOOD UREA NITROGEN 19 MG/DL (7-18); CALCIUM LEVEL 8.7 MG/DL (8.5-10.1); CARBON DIOXIDE LEVEL 30 MEQ/L (21-32); CHLORIDE LEVEL 108 MEQ/L (98-107); CHOLESTEROL LEVEL 225 MG/DL (<200); CHOLESTEROL RISK RATIO 5.232 (<5); CREATININE FOR GFR 0.87 MG/DL (0.55-1.30); FREE T4 1.09 NG/DL (0.76-1.46); GLOMERULAR FILTRATION RATE > 60.0 (>60); GLUCOSE, FASTING 76 MG/DL (70-100); HDL CHOLESTEROL 43 MG/DL (>40); LDL CHOLESTEROL 167 MG/DL (<100); NON-HDL-C 182 MG/DL; POTASSIUM SERUM 4.4 MEQ/L (3.5-5.1); SODIUM LEVEL 142 MEQ/L (136-145); TOTAL PROTEIN 7.4 GM/DL (6.4-8.2); TRIGLYCERIDES LEVEL 76 MG/DL (<150)
[2019-10-01 18:13] LABS: TOTAL 25(OH) VITAMIN D 34.6 NG/ML (30.0-100.0)
== END ==
LOC: M LAB REF 16:27
PROVIDERS: ATTEND Physician Assistant
DX: Z13.228 Encounter for screening for other metabolic disorders (principal); Z02.1 Encounter for pre-employment examination; F41.8 Other specified anxiety disorders; E03.9 Hypothyroidism, unspecified

== ENCOUNTER → 2020-04-28 | Outpatient (REF) | payer OTHER, MEDICAID ==
[2020-04-28 13:04] LABS: BASO # 0.1 10^3/uL (0.0-0.2); BASO % 0.7 % (0.0-1.0); EOS # 0.4 10^3/uL (0.0-0.5); EOS % 5.1 % (0.0-3.0); HEMOGLOBIN 14.6 g/dl (12.0-15.5); LYMPH # 3.5 10^3/uL (1.5-5.0); LYMPH % 47.1 % (24.0-44.0); MEAN CORPUSCULAR HEMOGLOBIN 28.6 pg (27.0-33.0); MEAN CORPUSCULAR HGB CONC 32.4 g/dl (32.0-36.5); MEAN CORPUSCULAR VOLUME 88.2 fl (80.0-96.0); MONO # 0.5 10^3/uL (0.0-0.8); MONO % 6.5 % (0.0-5.0); NEUTROPHILS % 40.3 % (36.0-66.0); PLATELET COUNT, AUTOMATED 263 10^3/uL (150-450); WHITE BLOOD COUNT 7.4 10^3/uL (4.0-10.0)
[2020-04-28 13:47] LABS: ALBUMIN 3.5 GM/DL (3.2-5.2); ALT/SGPT 25 U/L (12-78); BILIRUBIN,TOTAL 0.3 MG/DL (0.2-1.0); BLOOD UREA NITROGEN 13 MG/DL (7-18); CALCIUM LEVEL 8.4 MG/DL (8.5-10.1); CARBON DIOXIDE LEVEL 30 MEQ/L (21-32); CHLORIDE LEVEL 108 MEQ/L (98-107); CHOLESTEROL LEVEL 135 MG/DL (<200); CHOLESTEROL RISK RATIO 2.812 (<5); CREATININE FOR GFR 0.79 MG/DL (0.55-1.30); FREE T4 0.87 NG/DL (0.76-1.46); GLOMERULAR FILTRATION RATE > 60.0 (>60); GLUCOSE, FASTING 84 MG/DL (70-100); HDL CHOLESTEROL 48 MG/DL (>40); LDL CHOLESTEROL 70 MG/DL (<100); NON-HDL-C 87 MG/DL; POTASSIUM SERUM 3.8 MEQ/L (3.5-5.1); SODIUM LEVEL 139 MEQ/L (136-145); TOTAL 25(OH) VITAMIN D 34.1 NG/ML (30.0-100.0); TOTAL PROTEIN 6.7 GM/DL (6.4-8.2); TRIGLYCERIDES LEVEL 84 MG/DL (<150)
== END ==
LOC: M LAB REF 12:01
PROVIDERS: ATTEND Physician Assistant
DX: Z00.00 Encounter for general adult medical examination without abnormal findings (principal); Z76.89 Persons encountering health services in other specified circumstances; E78.49 Other hyperlipidemia; E03.9 Hypothyroidism, unspecified; Z13.228 Encounter for screening for other metabolic disorders; F41.8 Other specified anxiety disorders

== ENCOUNTER → 2022-06-26 | Outpatient (REF) | payer OTHER, MEDICAID ==
[~2022-06-26] MED LIST changes: +OMEP40CA4 PO; -OMEP40CA97 PO
== END ==
LOC: M LAB REF 16:11
PROVIDERS: ATTEND Physician Assistant Medical
DX: R05.9 Cough, unspecified (principal)

== ENCOUNTER → 2022-07-03 | Outpatient (REF) | payer OTHER, MEDICAID ==
[2022-07-03 19:40] LABS: BASO # 0.1 10^3/uL (0.0-0.2); BASO % 0.8 % (0.0-1.0); EOS # 0.4 10^3/uL (0.0-0.5); EOS % 4.5 % (0.0-3.0); HEMATOCRIT 45.4 % (36.0-47.0); HEMOGLOBIN 14.1 g/dl (12.0-15.5); LYMPH # 3.2 10^3/uL (1.5-5.0); LYMPH % 41.6 % (24.0-44.0); MEAN CORPUSCULAR HEMOGLOBIN 27.2 pg (27.0-33.0); MEAN CORPUSCULAR HGB CONC 31.1 g/dl (32.0-36.5); MEAN CORPUSCULAR VOLUME 87.5 fl (80.0-96.0); MONO # 0.6 10^3/uL (0.0-0.8); MONO % 8.2 % (2.0-8.0); NEUTROPHILS # 3.5 10^3/uL (1.5-8.5); NEUTROPHILS % 44.8 % (36.0-66.0); PLATELET COUNT, AUTOMATED 367 10^3/uL (150-450); RED BLOOD COUNT 5.19 10^6/uL (4.00-5.40); WHITE BLOOD COUNT 7.7 10^3/uL (4.0-10.0)
[2022-07-03 20:03] LABS: ALT/SGPT 46 U/L (7.0-40); BLOOD UREA NITROGEN 14 MG/DL (9-23); CALCIUM LEVEL 9.1 MG/DL (8.5-10.1); CARBON DIOXIDE LEVEL 27 MMOL/L (20-31); CHLORIDE LEVEL 100 MMOL/L (98-107); CHOLESTEROL LEVEL 144 MG/DL (<200); CHOLESTEROL RISK RATIO 3.59 (<5); CREATININE FOR GFR 0.82 MG/DL (0.55-1.30); GLOMERULAR FILTRATION RATE > 60.0 (>60); GLUCOSE, FASTING 85 MG/DL (60-100); HDL CHOLESTEROL 40.1 MG/DL (>40); LDL CHOLESTEROL 84.1 MG/DL (<100); NON-HDL-C 104 MG/DL; POTASSIUM SERUM 4.4 MMOL/L (3.5-5.1); SODIUM LEVEL 137 MMOL/L (136-145); THYROID STIMULATING HORMONE 0.141 uIU/ML (0.55-4.78); TOTAL 25(OH) VITAMIN D 42.7 NG/ML (20.0-100.0); TOTAL PROTEIN 7.1 G/DL (5.7-8.2); TRIGLYCERIDES LEVEL 99 MG/DL (<150)
== END ==
LOC: M LAB REF 16:24
PROVIDERS: ATTEND Physician Assistant
DX: E55.9 Vitamin D deficiency, unspecified (principal); E78.49 Other hyperlipidemia; E03.9 Hypothyroidism, unspecified; K21.9 Gastro-esophageal reflux disease without esophagitis

== ENCOUNTER → 2022-11-04 | Outpatient (REF) | payer OTHER, MEDICAID | LOC: M LAB REF 18:12 | PROVIDERS: ATTEND Physician Assistant | DX: Z12.4 Encounter for screening for malignant neoplasm of cervix (principal); Z11.3 Encounter for screening for infections with a predominantly sexual mode of transmission ==

== ENCOUNTER → 2022-11-07 | Outpatient (CLI) | payer OTHER, MEDICAID ==
[2022-11-07 10:30] LABS: ALBUMIN 3.6 G/DL (3.2-5.2); BILIRUBIN,DIRECT 0.3 MG/DL (<0.4); BILIRUBIN,TOTAL 0.6 MG/DL (0.3-1.2); THYROID STIMULATING HORMONE 1.77 uIU/ML (0.55-4.78); TOTAL PROTEIN 6.6 G/DL (5.7-8.2)
== END ==
LOC: M WUC 08:30
PROVIDERS: ATTEND Physician Assistant
DX: E03.9 Hypothyroidism, unspecified (principal); R74.01 Elevation of levels of liver transaminase levels

== ENCOUNTER → 2023-03-24 | Outpatient (REF) | payer OTHER ==
[2023-03-24 17:39] LABS: AMPHETAMINES URINE REFLEX NEGATIVE (NEGATIVE); BARBITURATES URINE REFLEX NEGATIVE (NEGATIVE); CANNABINOIDS URINE REFLEX NEGATIVE (NEGATIVE); COCAINE METABOLITE URINE REFLE NEGATIVE (NEGATIVE); METHADONE URINE REFLEX NEGATIVE (NEGATIVE); OPIATES URINE REFLEX NEGATIVE (NEGATIVE); PHENCYCLIDINE URINE REFLEX NEGATIVE (NEGATIVE)
[2023-03-24 17:48] LABS: BENZODIAZEPINES URINE REFLEX PENDING CONFIRMATION (NEGATIVE)
== END ==
LOC: M LAB REF 16:37
PROVIDERS: ATTEND Family Medicine Addiction Medicine
DX: Z76.89 Persons encountering health services in other specified circumstances (principal)
CPT/HCPCS: 80307; G0480

== ENCOUNTER → 2023-09-17 | Outpatient (REF) | payer OTHER ==
[~2023-09-17] MED LIST changes: -EFFE150C2 PO; +EFFE150C3 PO
[2023-09-17 17:03] LABS: HEMATOCRIT 43.5 % (36.0-47.0); HEMOGLOBIN 14.4 g/dl (12.0-15.5); MEAN CORPUSCULAR HGB CONC 33.1 g/dl (32.0-36.5); MEAN CORPUSCULAR VOLUME 84.6 fl (80.0-96.0); PLATELET COUNT, AUTOMATED 391 10^3/uL (150-450); RED BLOOD COUNT 5.14 10^6/uL (4.00-5.40); WHITE BLOOD COUNT 7.6 10^3/uL (4.0-10.0)
[2023-09-17 17:29] LABS: ALBUMIN 3.4 G/DL (3.2-5.2); ALKALINE PHOSPHATASE 113 U/L (46-116); ALT/SGPT 33 U/L (7.0-40); AST/SGOT 24 U/L (<34); BILIRUBIN,TOTAL 0.3 MG/DL (0.3-1.2); BLOOD UREA NITROGEN 13 MG/DL (9-23); CALCIUM LEVEL 8.6 MG/DL (8.5-10.1); CARBON DIOXIDE LEVEL 27 MMOL/L (20-31); CHLORIDE LEVEL 108 MMOL/L (98-107); CHOLESTEROL LEVEL 153 MG/DL (<200); CHOLESTEROL RISK RATIO 4.02 (<5); CREATININE FOR GFR 0.68 MG/DL (0.55-1.30); GLOMERULAR FILTRATION RATE > 60.0 (>58); GLUCOSE, FASTING 89 MG/DL (60-100); LDL CHOLESTEROL 80.4 MG/DL (<100); POTASSIUM SERUM 4.8 MMOL/L (3.5-5.1); SODIUM LEVEL 139 MMOL/L (136-145); THYROID STIMULATING HORMONE 0.461 uIU/ML (0.55-4.78); TOTAL 25(OH) VITAMIN D 44.4 NG/ML (20.0-100.0); TOTAL PROTEIN 6.8 G/DL (5.7-8.2); TRIGLYCERIDES LEVEL 173 MG/DL (<150)
== END ==
LOC: M LAB REF 16:29
PROVIDERS: ATTEND Physician Assistant
DX: Z13.1 Encounter for screening for diabetes mellitus (principal); Z13.220 Encounter for screening for lipoid disorders

== ENCOUNTER → 2023-11-10 | Outpatient (REF) | payer OTHER | LOC: M LAB REF 16:19 | PROVIDERS: ATTEND Physician Assistant | DX: Z12.4 Encounter for screening for malignant neoplasm of cervix (principal); Z79.899 Other long term (current) drug therapy; R87.610 Atypical squamous cells of undetermined significance on cytologic smear of cervix (ASC-US) ==

== ENCOUNTER 2024-03-24 19:35 | Emergency (ER) | payer OTHER ==
[~2024-03-24] VITALS: Ht 157.5 cm; Wt 106.8 kg
[2024-03-24 19:35] VITALS: BP 154/99; TEMP 97.8; O2SAT 98
== END 2024-03-24 19:48 | disposition left against medical advice (07) ==
LOC: M ED 19:35
DX: Z53.21 Procedure and treatment not carried out due to patient leaving prior to being seen by health care provider (principal)

== ENCOUNTER → 2024-03-29 | Outpatient (REF) | payer OTHER | LOC: M LAB REF 13:13 | PROVIDERS: ATTEND Physician Assistant | DX: E03.9 Hypothyroidism, unspecified (principal) ==

== ENCOUNTER → 2024-04-01 | Outpatient (REF) | payer OTHER ==
[2024-04-01 21:55] LABS: APPEARANCE, URINE HAZY (CLEAR); BACTERIA, URINE AUTO 1+ (NEGATIVE); BILIRUBIN, URINE AUTO NEGATIVE (NEGATIVE); BLOOD, URINE BLOOD 2+ (NEGATIVE); COLOR, URINE YELLOW (YELLOW); GLUCOSE, URINE (UA) AUTO NEGATIVE (NEGATIVE); KETONE, URINE AUTO NEGATIVE (NEGATIVE); LEUKOCYTE ESTERASE, URINE AUTO 3+ (NEGATIVE); MUCUS, URINE SMALL (NEGATIVE); NITRITE, URINE AUTO NEGATIVE (NEGATIVE); PROTEIN, URINE AUTO 1+ mg/dL (NEGATIVE); RBC, URINE AUTO 7 /HPF (0-3); SPECIFIC GRAVITY URINE AUTO 1.005 (1.002-1.035); SQUAMOUS EPITHELIAL CELL UR AU 1 /HPF (0-6); UROBILINOGEN, URINE AUTO 0.2 mg/dL (0.0-2.0); WBC, URINE AUTO TNTC /HPF (0-3)
== END ==
LOC: EEVIPCON 21:25 → M LAB REF 21:25
PROVIDERS: ATTEND Physician Assistant
DX: N39.0 Urinary tract infection, site not specified (principal)

== ENCOUNTER → 2024-04-16 | Outpatient (REF) | payer OTHER ==
[2024-04-16 13:30] LABS: APPEARANCE, URINE HAZY (CLEAR); BACTERIA, URINE AUTO 2+ (NEGATIVE); BILIRUBIN, URINE AUTO NEGATIVE (NEGATIVE); BLOOD, URINE BLOOD 1+ (NEGATIVE); COLOR, URINE AMBER (YELLOW); GLUCOSE, URINE (UA) AUTO NEGATIVE (NEGATIVE); KETONE, URINE AUTO NEGATIVE (NEGATIVE); LEUKOCYTE ESTERASE, URINE AUTO 1+ (NEGATIVE); NITRITE, URINE AUTO POSITIVE (NEGATIVE); PROTEIN, URINE AUTO NEGATIVE (NEGATIVE); RBC, URINE AUTO 1 /HPF (0-3); SQUAMOUS EPITHELIAL CELL UR AU 6 /HPF (0-6); WBC, URINE AUTO 12 /HPF (0-3)
== END ==
LOC: M LAB REF 12:46
PROVIDERS: ATTEND Physician Assistant
DX: N39.0 Urinary tract infection, site not specified (principal)

== ENCOUNTER → 2024-10-07 | Outpatient (REF) | payer OTHER ==
[2024-10-07 18:04] LABS: THYROID STIMULATING HORMONE 5.279 uIU/ML (0.55-4.78)
[2024-10-07 18:05] LABS: FREE T4 1.42 NG/DL (0.89-1.76)
[2024-10-07 18:07] LABS: THYROID PEROXIDASE ANTIBODY < 28.0 U/ML (<60.0)
== END ==
LOC: M LAB REF 16:43
PROVIDERS: ATTEND Physician Assistant
DX: E03.8 Other specified hypothyroidism (principal)

== ENCOUNTER → 2024-12-07 | Outpatient (REF) | payer OTHER ==
[2024-12-07 21:40] LABS: APPEARANCE, URINE HAZY (CLEAR); BACTERIA, URINE AUTO NEGATIVE (NEGATIVE); BILIRUBIN, URINE AUTO NEGATIVE (NEGATIVE); BLOOD, URINE BLOOD NEGATIVE (NEGATIVE); COLOR, URINE YELLOW (YELLOW); GLUCOSE, URINE (UA) AUTO NEGATIVE (NEGATIVE); KETONE, URINE AUTO NEGATIVE (NEGATIVE); LEUKOCYTE ESTERASE, URINE AUTO TRACE (NEGATIVE); MUCUS, URINE MODERATE (NEGATIVE); NITRITE, URINE AUTO NEGATIVE (NEGATIVE); PROTEIN, URINE AUTO 1+ mg/dL (NEGATIVE); RBC, URINE AUTO 1 /HPF (0-3); SQUAMOUS EPITHELIAL CELL UR AU 3 /HPF (0-6); UROBILINOGEN, URINE AUTO 0.2 mg/dL (0.0-2.0); WBC, URINE AUTO 2 /HPF (0-3)
== END ==
LOC: M LAB REF 21:20
PROVIDERS: ATTEND Physician Assistant Medical
DX: N39.0 Urinary tract infection, site not specified (principal)

== ENCOUNTER → 2024-12-09 | Outpatient (CLI) | payer OTHER | LOC: M WUC 08:53 | PROVIDERS: ATTEND Physician Assistant | DX: M25.512 Pain in left shoulder (principal) ==

== ENCOUNTER → 2024-12-09 | Outpatient (REF) | payer OTHER ==
[2024-12-09 12:41] LABS: THYROID STIMULATING HORMONE 0.01 uIU/ML (0.55-4.78)
[2024-12-09 12:43] LABS: FREE T4 2.02 NG/DL (0.89-1.76)
== END ==
LOC: M LAB REF 11:42
PROVIDERS: ATTEND Physician Assistant
DX: E03.8 Other specified hypothyroidism (principal); E06.3 Autoimmune thyroiditis

== ENCOUNTER → 2025-03-03 | Outpatient (CLI) | payer OTHER ==
[2025-03-03 15:39] LABS: FREE T4 1.73 NG/DL (0.89-1.76)
== END ==
LOC: M PLALAB 11:54
PROVIDERS: ATTEND Physician Assistant
DX: E03.8 Other specified hypothyroidism (principal); E06.3 Autoimmune thyroiditis

== ENCOUNTER → 2025-04-01 | Outpatient (CLI) | payer OTHER | LOC: M PLALAB 10:25 | PROVIDERS: ATTEND Nurse Practitioner Family | DX: E03.8 Other specified hypothyroidism (principal) ==

== ENCOUNTER → 2025-05-17 | Outpatient (REF) | payer OTHER | LOC: M LAB REF 17:29 | PROVIDERS: ATTEND Physician Assistant | DX: Z78.9 Other specified health status (principal) ==

== ENCOUNTER → 2025-06-03 | Outpatient (REF) | payer OTHER | LOC: M LAB REF 17:14 | PROVIDERS: ATTEND Nurse Practitioner Family | DX: E03.8 Other specified hypothyroidism (principal); E06.3 Autoimmune thyroiditis ==